=== PATIENT | male | born 1960 | race Caucasian/White ===

== ENCOUNTER 2018-06-30 09:17 | Outpatient (CLI) ==
[2016-01-03 09:59] VITALS: BMI 24.7
== END 2018-06-30 09:18 | disposition home or self-care (01) ==
LOC: LAB 09:17
PROVIDERS: ATTEND Nurse Practitioner Family
DX: Z00.00 Encounter for general adult medical examination without abnormal findings (principal)
CPT/HCPCS: 36415; 80053; 80061; 85025

== ENCOUNTER 2022-07-03 10:12 | Observation (INO) ==
[2022-07-03] MEDS ORDERED: ASPIRIN CHEWABLE PO STA (10:25)
[2022-07-03] MEDS ORDERED: SODIUM CHLORIDE 1,000 ML IV STA (10:25)
[2022-07-03] MEDS ORDERED: NITROSTAT SL PRN (10:25)
--- NOTE | 2022-07-03 10:25 | ED.PDOC ---
General ED Provider: Dr. DWAIN PORTILLO MD Chief Complaint: Chest Pain Stated Complaint: PATIENT WITH A HISTORY OF PREVIOUS MYOCARDIAL INFARCTION, INSERTION CORONARY STENT, COMPLAINS OF SUBSTERNAL CHEST PRESSURE X 2 DAYS. PAIN SCALE 8/10, ASSOCIATED WITH DYSPNEA, RADIATION OF PAIN TO LEFT SHOULDER. PATIENT TOOK 1 BABY ASPIRIN TODAY. Time Seen by Provider: 07/03/22 10:19 Mode of Arrival: Walk-In Information Source: Patient Exam Limitations: Clinical condition Primary Care Provider: EDUARDO MALIN Nursing and Triage Documentation Reviewed and Agree: Yes Does patient meet sepsis criteria?: No System Inflammatory Response Syndrome: Not Applicable Sepsis Protocol: For patient's 13 years and over: Temp is 96.8 and below OR 101 and greater Pulse >90 BPM Resp >20/minute Acutely Altered Mental Status Are patient's symptoms suggestive of a new infection, such as: -Pneumonia -Skin, Soft Tissue -Endocarditis -UTI -Bone, Joint Infection -Implantable Device -Acute Abdominal Infection -Wound Infection -Meningitis -Blood Stream Catheter Infection -Unknown Cardiovascular Complaint Exam Chest Pain Complaint/Exam Onset: Sudden Duration: INTERMITTENT FOR 2 DAYS Symptoms Are: Still present Timing: Intermittent Length of Chest Pain Episodes: PAIN SCALE 8/10, OCCASIONAL DYSPNEA, RADIATES TO LEFT SHOULDER Initial Severity: Moderate Current Severity: Moderate Location: Reports Diffuse Pain Radiates: Reports Left shoulder Character: Reports Pressure Aggravating: Reports None Alleviating: Reports None Associated Signs and Symptoms: Reports Short of air Related History: Reports Similar episode Related Surgical History: Reports PTCA/Stent (CORONARY STENT X 1) History of Healthcare-Acquired Pneumonia: Reports No AMI/ACS Risk Factors: Reports Myocardial Infarction; Denies Sedentary, Diabetes or Obesity TAD Risk Factors: Reports Hypertension Pulmonary Embolism Risk Factors: Denies None Prior Care for this Complaint: Yes Recent Stress Test: No Recent Echo/LV Function: Yes Subcutaneous Emphysema Present: Yes Reproducible Chest Wall Pain: Yes Bilateral Pulses Present: Yes Unequal Pulses Noted: No Review of Systems Review Of Systems Constitutional: Reports No symptoms and Chills Eyes: Reports No symptoms; Denies Blindness Ears, Nose, Mouth, Throat: Reports No symptoms; Denies Ear pain Respiratory: Reports No symptoms Cardiac: Reports Chest pain; Denies Irregular heart rate, Lightheadedness, P alpitations or Syncope GI: Reports No symptoms; Denies Abdomen distended, Abdominal pain or Rectal bleeding : Reports No symptoms; Denies Burning, Dysuria or Discharge Musculoskeletal: Reports No symptoms; Denies Back pain, Gout, Joint pain or Joint swelling Skin: Reports No symptoms; Denies Bruising, Change in color or Change in hair/nails Neurological: Reports No symptoms; Denies Anxiety, Depressed, Emotional problems or Tonic-Clonic seizures Endocrine: Reports No symptoms; Denies Excessive sweating Hematologic/Lymphatic: Reports No symptoms; Denies Anemia All Other Systems: Reviewed and Negative [facility] Medical History (Updated 07/03/22 @ 13:38 by DWAIN PORTILLO MD) Myocardial infarction I21.9 - Acute myocardial infarction, unspecified (ICD-10) Right shoulder pain M25.511 - Pain in right shoulder (ICD-10) Family History FATHER Diabetes, Onset Age: 60 SISTER Cardiac disease, Onset Age: 62 Paternal Grandfather Sudden , Onset Age: 65 Mother Dementia, Onset Age: 70 Social History Smoking and tobacco status: Never smoker Alcohol intake: current Alcohol intake frequency: a few times a month Substance use type: does not use Donna/nondenominational: NONE Adopted: No Caregiver/support person: No Foster care: No Household members: children Housing: house Lives independently: Yes Number of children: 2 Number of grandchildren: 3 Highest education level completed: high school graduate Financial difficulty paying for basics: somewhat hard service: Yes status: [employer]: [employer] Current occupational status: employed Current occupation: internet security specialist Current occupational exposures/hazards: No Pets and animals: Yes Leisure activites: sports, fishing and reading History of recent travel: No Sexually active: Yes Do you think of yourself as: straight/heterosexual Current gender identity: male Seatbelt use: always Helmet use: No Drives intoxicated or rides with intoxicated armor reconnaissance vehicle driver: No Current diet type/program: regular Well-balanced diet: daily Caffeine: Yes Eating out: 1-3 times/week Reads food labels: seldom or never During the past year weight has: remained stable Water heater temperature set < 120 degrees: Yes Working smoke detector in home: Yes Fire extinguisher in home: Yes Carbon monoxide detector in home: Yes Firearms in home: No What type of physical activity do you participate in?: walking, bicycling and weight lifting Physical activity functional status: independent ambulation How many days of moderate to strenuous exercise, like a brisk walk, did you do in the last 7 days: 5 Surgical History (Updated 10/14/19 @ 08:46 by JiaThis PA) History of musculoskeletal system surgery Z98.890 - Other specified postprocedural states (ICD-10) Placement of stent in coronary artery (01/05/16) Physical Exam Physical Exam Appearance: Reports Well-appearing Ill-appearing: Mild Pain Distress: Moderate Eyes: Reports EOMI and Conjunctiva clear; Denies Conjunctiva inflammed ENT: Reports Nose normal and Oropharynx normal; Denies TMs Occluded Neck: Supple Respiratory: Reports Airway patent, Breath sounds clear and Breath sounds equal; Denies Breath sounds diminished Cardiovascular: Reports Pulses normal and No murmur; Denies Irregular rhythm, Tachycardia or Bradycardia GI/: Reports Soft, Nontender, No masses and Bowel sounds normal; Denies No Organomegaly Musculoskeletal: Reports Normal strength and ROM intact Skin: Reports Warm, Dry and Normal color Neurological: Reports Sensation intact, Motor intact and Reflexes intact Psychiatric: Reports Affect appropriate and Mood appropriate Interpretation Radiology Interpretation Radiology Interpretation By: Radiologist Radiology Results: No acute changes Exam Interpreted: Portable CXR Xray Comments: NO ACUTE CARDION PULMONARY PROCESS, FINDING REVIEWED BY MYSELF [facility] Director Time of [facility] Director Interpretation: 10:20 EKG Interpretation Time of EKG #1: 10:15 Rate: Normal Rhythm: Sinus Ectopy: None Mangham: Left ST Segment: Other (NORMAL SINUS RYHTHM RATE 68, OLD INFERIOR NE, NO ECTOPY, NO PROLONGATION OF NM AND QT INTERVALS) Re-Evaluation Re-Evaluation Time of Re-Evaluation: 12:15 Appearance: NAD Lungs: Clear CV: RRR Additional Comments: PATIENT GIVEN ASPIRIN 243MG ORALLY, NITRO 0.4MG SL, WITH COMPLETE RELIEF, APPLICATION NITROPASTE 1" ANTERIOR CHEST WALL Critical Care Note Critical Care Note Total Critical Care Time (mins): 0 Course Course 07/03/22 10:30 07/03/22 10:30 Orders, Labs, Meds: Lab Review 07/03/22 07/03/22 10:30 12:50 WBC 7.50 RBC 5.21 Hgb 15.8 Hct 45.0 MCV 86.4 MCH 30.3 MCHC 35.1 RDW Coeff of Angle 12.5 Plt Count 218 Immature Gran % (Auto) 0.4 Neut % (Auto) 48.8 Lymph % (Auto) 42.4 Atkinson % (Auto) 6.4 Eos % (Auto) 1.3 Baso % (Auto) 0.7 Neut # (Auto) 3.7 Lymph # (Auto) 3.2 Atkinson # (Auto) 0.5 Eos # (Auto) 0.1 Baso # (Auto) 0.1 Immature Gran # (Auto) 0.0 PT 10.1 INR 0.97 APTT 25.5 Sodium 138.1 Potassium 3.96 Chloride 102.5 Carbon Dioxide 30.4 H Anion Gap 9.16 BUN 8.7 L Creatinine 0.98 Estimated GFR (MDRD) 78.00 BUN/Creatinine Ratio 8.87 Glucose 167.6 H Calcium 8.98 Magnesium 2.02 Total Bilirubin 1.01 AST 33.6 ALT 35.9 Alkaline Phosphatase 71.7 Troponin I 0.021 0.029 Total Protein 7.39 Albumin 4.51 Globulin 2.88 Albumin/Globulin Ratio 1.56 D-Dimer 326.70 Orders Category Date Time Status EKG-(ED ONLY) Stat CARDIO 07/03/22 10:25 Completed TELEMETRY MONITORING TELE CARE 07/03/22 10:25 Active IV [ED IV/MEDIPORT/POWERPORT] .ONCE EMERGENCY 07/03/22 10:25 Active CBC W/ AUTO DIFF Stat LAB 07/03/22 10:30 Completed CMP [COMPREHENSIVE METABOLIC PANEL] Stat LAB 07/03/22 10:30 Completed COVID [SARS COV-2 RNA RAPID KASHMIR] Stat LAB 07/03/22 13:00 Received D-DIMER Stat LAB 07/03/22 10:30 Completed MAGNESIUM Stat LAB 07/03/22 10:30 Completed PT WITH INR Stat LAB 07/03/22 10:30 Completed PTT [PARTIAL THROMBOPLASTIN TIME] Stat LAB 07/03/22 10:30 Completed TROPONIN I Stat LAB 07/03/22 10:30 Completed TROPONIN I Stat LAB 07/03/22 12:50 Completed 0.9 % Sodium Chloride [Saline Flush] MEDS 07/03/22 10:25 Active 1 syr IVF PRN PRN Aspirin [Aspirin Chewable] MEDS 07/03/22 10:25 Discontinued 243 mg PO ONCE STA Morphine Sulfate [Morphine 2 mg/ml Syringe] MEDS 07/03/22 11:57 Discontinued 2 mg IVP ONCE STA Nitroglycerin [Nitro-Bid] MEDS 07/03/22 11:57 Discontinued 1 inch TD ONCE STA Nitroglycerin [Nitrostat] MEDS 07/03/22 10:25 Active 0.4 mg SL Q5MIN X 3 DOSES PRN Ondansetron HCl/Pf [Zofran 4 mg/2 ml] MEDS 07/03/22 11:57 Discontinued 4 mg IVP ONCE STA Sodium Chloride 0.9% [Sodium Chloride] 1,000 ml MEDS 07/03/22 10:25 Active IV 30 mls/hr CHEST, 1V AP ONLY Stat RADS 07/03/22 10:25 Completed Medications Generic Name Dose Route Start Last Admin Trade Name Freq PRN Reason Stop Dose Admin Sodium Chloride 1,000 mls @ 30 mls/hr 07/03/22 10:25 07/03/22 10:35 Sodium Chloride IV 07/04/22 19:44 30 mls/hr .[id number] STA Administration Nitroglycerin 0.4 mg 07/03/22 10:25 07/03/22 10:47 Nitroglycerin 0.4 Mg Tab.Subl SL 0.4 mg Q5MIN X 3 DOSES PRN Administration Chest Pain Sodium Chloride 1 syr 07/03/22 10:25 0.9% Sodium Chloride 10 Ml Disp.Syrin IVF PRN PRN To flush IV Discontinued Medications Generic Name Dose Route Start Last Admin Trade Name Frekarli PRN Reason Stop Dose Admin Aspirin 243 mg 07/03/22 10:25 07/03/22 10:34 Aspirin 81 Mg Tab.Chew PO 07/03/22 10:26 243 mg ONCE STA Administration Morphine Sulfate 2 mg 07/03/22 11:57 Morphine Sulfate 2 Mg/Ml Syringe IVP 07/03/22 11:58 ONCE STA Nitroglycerin 1 inch 07/03/22 11:57 Nitroglycerin 1 Gm Oint TD 07/03/22 11:58 ONCE STA Ondansetron HCl 4 mg 07/03/22 11:57 07/03/22 12:16 Ondansetron Hcl/Pf 4 Mg/2 Ml Sdv IVP 07/03/22 11:58 4 mg ONCE STA Administration Vital Signs: Temp Pulse Resp BP Pulse Ox 07/03/22 11:36 66 16 150/81 H 95 07/03/22 10:47 77 14 175/108 H 98 07/03/22 10:18 98.1 F 72 16 193/108 H 99 SHANNON Risk Score Age >/= 65: No >/= 3 CAD Risk Factors: No Known CAD (Stenosis >/= 50%): Yes ASA Use in Past 7 Days: Yes Severe Angina (>/= 2 episodes in 24 hours): Yes EKG ST Changes >/= 0.5mm: No Postive Cardiac Marker: No SHANNON Total Score: 3 SHANNON Risk Score: Risk Score Odds of by 30D 0 0.1 (0.1-0.2) 1 0.3 (0.2-0.3) 2 0.4 (0.3-0.5) 3 0.7 (0.6-0.9) 4 1.2 (1.0-1.5) 5 2.2 (1.9-2.6) 6 3.0 (2.5-3.6) 7 4.8 (3.8-6.1) Discharge Plan Discharge Patient Disposition: PLACED OBSERVATION Discharge Problem: Chest pain Prescriptions: No Action aspirin [Aspirin Low-Strength] 81 MG tablet,chewable 81 mg PO DAILY atorvastatin 10 mg tablet 10 mg PO DAILY lisinopril 10 mg tablet 10 mg PO DAILY Did you review [place] PET TRAINING INSTRUCTOR for ALL controlled substances?: Not Applicable ED Provider: DWAIN PORTILLO Physician Progress Note: MDM HISTORY PROVIDED BY PATIENT PATIENT WITH A HISTORY OF CAD, PREVIOUS NE, CORONARY STENT INSERTION, COMPLAINS OF SUBSTERNAL CHEST PRESSURE X 2 DAYS INTERMITTENTLY, PAIN SCALE 8/10, RADIATES TO LEFT ARM, HAS OCCASIONAL DYSPNEA. DENIES PALPITATION, DIAPHORESIS. SHANNON SCORE -3 CARDIAC MARKERS TROPONIN AT 1030-0.021 AND 1250-0.029 PATIENT TOOK 1 BABY ASPIRIN PRIOR TO ARRIVAL, GIVEN ASA 243MG FOLLOWED BY NTG 0.4MG SL WITH COMPLETE RELIEF, ADMINISTERED ZOFRAN 4MG, MORPHINE 2MG IV AND NITROPASTE 1" ANTERIOR CHEST WALL CONSULT HOSPITALIST QUIANA AT 1335 FOR OBSERVATION WITH TELEMETRY DIAGNOSIS: 1)ACUTE CHEST PAIN 2)ACUTE CORONARY SYNDROME 3)PLEURISY 4)PULMONARY EMBOLISM []
[2022-07-03 10:34] LABS: BASOPHILS # (AUTO) 0.1 K/uL (0-0.2); BASOPHILS % (AUTO) 0.7 % (0.0-3.0); EOSINOPHILS # (AUTO) 0.1 K/ul (0.0-0.7); EOSINOPHILS % (AUTO) 1.3 % (0.0-7.0); HEMOGLOBIN 15.8 g/dl (14.0-18.0); IMMATURE GRANULOCYTE % (AUTO) 0.4 % (0.0-5.0); LYMPHOCYTES # (AUTO) 3.2 K/uL (0.60-3.4); LYMPHOCYTES % (AUTO) 42.4 (10.0-50.0); MEAN CORPUSCULAR HEMOGLOBIN 30.3 pg (27.0-31.0); MEAN CORPUSCULAR HGB CONC 35.1 (31.8-35.4); MEAN CORPUSCULAR VOLUME 86.4 fl (80.0-94.0); MONOCYTES # (AUTO) 0.5 K/uL (0.4-2.0); MONOCYTES % (AUTO) 6.4 (0-10); NEUTROPHILS # (AUTO) 3.7 K/ul (2.0-6.9); NEUTROPHILS % (AUTO) 48.8 % (42.2-75.2); PLATELET COUNT 218 10^3/uL (140-440); RDW COEFFICIENT OF VARIATION 12.5 % (11.6-14.8); RED BLOOD COUNT 5.21 10^6/ul (4.70-6.10)
[2022-07-03 10:42] LABS: ALANINE AMINOTRANSFERASE 35.9 U/L (0-50); ALBUMIN 4.51 g/dL (3.5-5.0); ALKALINE PHOSPHATASE 71.7 U/L (56-119); ASPARTATE AMINO TRANSFERASE 33.6 U/L (17-59); BILIRUBIN,TOTAL 1.01 mg/dL (0.2-1.3); BLOOD UREA NITROGEN 8.7 mg/dL (9-20); CALCIUM 8.98 mg/dL (8.4-10.2); CARBON DIOXIDE 30.4 mmol/L (22-30.0); CHLORIDE 102.5 mmol/L (98-107); CREATININE 0.98 mg/dL (0.60-1.10); GLUCOSE 167.6 mg/dL (74-106); MAGNESIUM 2.02 mg/dL (1.6-2.3); POTASSIUM 3.96 mmol/L (3.5-5.1); SODIUM 138.1 mmol/L (134.5-145); TOTAL PROTEIN 7.39 g/dL (6.3-8.2)
--- NOTE | 2022-07-03 10:43 | DI ---
EXAM: SINGLE VIEW CHEST. HISTORY: Dyspnea COMPARISON: Chest CT 01/03/2016 FINDINGS: The heart is normal in size. Pulmonary vascularity is within normal limits. No focal airsp jose g opacity or pleural effusion is seen. Osseous structures are unremarkable. IMPRESSION: No acute cardiopulmonary findings.
[2022-07-03 10:52] LABS: PARTIAL THROMBOPLASTIN TIME 25.5 SEC (23.9-40.0); PROTHROMBIN TIME 10.1 SEC (9.3-11.0)
[2022-07-03 10:54] LABS: TROPONIN I 0.021 ng/ml (0.0000-0.120)
[2022-07-03] MEDS ORDERED: NITRO-BID TD STA (11:57)
[2022-07-03] MEDS ORDERED: MORPHINE 2 MG/ML SYRINGE IVP STA (11:57)
[2022-07-03] MEDS ORDERED: ZOFRAN 4 MG/2 ML IVP STA (11:57)
[2022-07-03 13:41] LABS: SARS COV-2 RNA RAPID NAAT NEGATIVE (NEGATIVE)
[2022-07-03] MEDS ORDERED: TYLENOL PO PRN (14:59)
[2022-07-03] MEDS ORDERED: ZOFRAN 4 MG/2 ML IVP PRN (14:59)
[2022-07-03] MEDS ORDERED: MYLANTA SUSP PO PRN (15:03)
[2022-07-03 15:26] VITALS: BMI 27.7
[2022-07-03 15:57] LABS: HDL CHOLESTEROL 44.4 mg/dL (35-60); TRIGLYCERIDES 413.8 mg/dL (0-150)
--- NOTE | 2022-07-03 18:16 | PCM ---
Date of Service Date Seen by Provider: 07/03/22 Admit Day/Time Admission Date: 07/03/22 Reason for Admission Chief Complaint: CHEST PAIN Hospital Provider Hospital Provider: PHIL MOJICA, [facility] Primary Care Physician Primary Care Physician: ABISAI HERNANDEZ History of Present Illness History of Present Illness: 61 yo male presented to the ER with chest pain that started 2 days ago. Patient reports that the pain started prior to going into work and he took an aspirin which relieved the pain. Today, the pain started again and took an aspirin again and it did not go away. Describes the pain as a tightness. No aggravating or relieving factors. Has [facility] of [place] with stent placement 7 years ago. Received a nitro in the ER with relief of symptoms then was given nitro paste. Denies any fever, SOB, N/V/D. Case Discussed With Case Discussed With: Patient's case was discussed with the ER Physicians, Dr. Jones. [facility] Medical History (Updated 07/03/22 @ 18:04 by PHIL MOJICA) Hyperlipidemia E78.5 - Hyperlipidemia, unspecified (ICD-10) Hypertension I10 - Essential (primary) hypertension (ICD-10) Myocardial infarction I21.9 - Acute myocardial infarction, unspecified (ICD-10) Pneumonia J18.9 - Pneumonia, unspecified organism (ICD-10) Right shoulder pain M25.511 - Pain in right shoulder (ICD-10) Surgical History History of musculoskeletal system surgery Z98.890 - Other specified postprocedural states (ICD-10) Placement of stent in coronary artery (01/05/16) Family History FATHER Diabetes, Onset Age: 60 SISTER Cardiac disease, Onset Age: 62 Paternal Grandfather Sudden , Onset Age: 65 Mother Dementia, Onset Age: 70 Social History Smoking and tobacco status: Former smoker Quit status: has quit before Second hand smoke exposure: No Alcohol intake: current Alcohol intake frequency: a few times a month Substance use type: does not use Donna/holiness: NONE Adopted: No Caregiver/support person: No Foster care: No Household members: children Housing: house Lives independently: Yes Number of children: 2 Number of grandchildren: 3 Highest education level completed: high school graduate Financial difficulty paying for basics: somewhat hard service: Yes status: reserves branch: [employer] Current occupational status: employed Current occupation: solutions executive security Current occupational exposures/hazards: No Pets and animals: Yes Leisure activites: sports, fishing and reading History of recent travel: No Sexually active: Yes Do you think of yourself as: straight/heterosexual Current gender identity: male Seatbelt use: always Helmet use: No Drives intoxicated or rides with intoxicated limousine driver: No Current diet type/program: regular Well-balanced diet: daily Caffeine: Yes Eating out: 1-3 times/week Reads food labels: seldom or never During the past year weight has: remained stable Water heater temperature set < 120 degrees: Yes Working smoke detector in home: Yes Fire extinguisher in home: Yes Carbon monoxide detector in home: Yes Firearms in home: No What type of physical activity do you participate in?: walking, bicycling and weight lifting Physical activity functional status: independent ambulation How many days of moderate to strenuous exercise, like a brisk walk, did you do in the last 7 days: 5 Allergies Allergies Allergy/AdvReac Type Severity Reaction Status Date / Time No Known Allergies Allergy Verified 01/21/19 09:42 Current Medications Home Medications aspirin 81 mg chewable tablet (Aspirin Low-Strength) 81 mg PO DAILY 06/07/17 [History Confirmed 07/03/22 Last Taken 10/25/18 09:00] atorvastatin 10 mg tablet 10 mg PO DAILY 07/03/22 [History Confirmed 07/03/22 Last Taken Unknown] lisinopril 10 mg tablet 10 mg PO DAILY 07/03/22 [History Confirmed 07/03/22 Last Taken Unknown] Home Acetaminophen (Acetaminophen 325 Mg Tablet) 650 mg PO Q4H PRN PRN Reason: Mild Pain Al Hydroxide/Mg Hydroxide (Mag Hydrox/Al Hydrox/Simeth 30 Ml Cup) 30 ml PO BID PRN PRN Reason: Heartburn Aspirin (Aspirin 81 Mg Tab.Chew) 81 mg PO DAILY REPLACED BY [facility] Atorvastatin Calcium (Atorvastatin Calcium 10 Mg Tablet) 10 mg PO DAILY REPLACED BY [facility] Enoxaparin Sodium (Enoxaparin Sodium 30 Mg/0.3 Ml Syr) 30 mg SUBCUT DAILY LETITIA Sodium Chloride (Sodium Chloride) 1,000 mls @ 30 mls/hr IV .[id number] STA Stop: 07/04/22 19:44 Last Admin: 07/03/22 10:35 Dose: 30 mls/hr Lisinopril (Lisinopril 10 Mg Tablet) 10 mg PO DAILY LETITIA Nitroglycerin (Nitroglycerin 0.4 Mg Tab.Subl) 0.4 mg SL Q5MIN X 3 DOSES PRN PRN Reason: Chest Pain Last Admin: 07/03/22 10:47 Dose: 0.4 mg Ondansetron HCl (Ondansetron Hcl/Pf 4 Mg/2 Ml Sdv) 4 mg IVP Q8H PRN PRN Reason: Nausea / Vomiting Sodium Chloride (0.9% Sodium Chloride 10 Ml Disp.Syrin) 1 syr IVF PRN PRN PRN Reason: To flush IV Discontinued Medications Aspirin (Aspirin 81 Mg Tab.Chew) 243 mg PO ONCE STA Stop: 07/03/22 10:26 Last Admin: 07/03/22 10:34 Dose: 243 mg Morphine Sulfate (Morphine Sulfate 2 Mg/Ml Syringe) 2 mg IVP ONCE STA Stop: 07/03/22 11:58 Last Admin: 07/03/22 14:02 Dose: Not Given Nitroglycerin (Nitroglycerin 1 Gm Oint) 1 inch TD ONCE STA Stop: 07/03/22 11:58 Last Admin: 07/03/22 14:03 Dose: Not Given Ondansetron HCl (Ondansetron Hcl/Pf 4 Mg/2 Ml Sdv) 4 mg IVP ONCE STA Stop: 07/03/22 11:58 Last Admin: 07/03/22 12:16 Dose: 4 mg Review of Systems Constitutional: Reports No symptoms Head: Reports Normocephalic and Atraumatic Eyes: Reports No symptoms Ears: Reports No symptoms Nose: Reports No symptoms Mouth: Reports No symptoms Throat: Reports No symptoms Cardiovascular: Reports Chest pain, High Blood Pressure and Diaphoresis Respiratory: Reports No symptoms Gastrointestinal: Reports No symptoms Genitourinary: Reports No Symptoms Musculoskeletal: Reports No symptoms Endocrine: Reports No symptoms Hematology: Reports No symptoms Immunology: Reports No symptoms Neurological: Reports No symptoms Psychiatric: Reports No symptoms Physical examination Most Recent Vital Signs: Most Recent Vital Signs Temperature 97 F L 07/03/22 14:51 Temperature Source Oral 07/03/22 14:51 Temperature Source Infrared 07/03/22 10:18 Pulse Rate 68 07/03/22 14:51 Respiratory Rate 18 07/03/22 14:51 Blood Pressure 118/72 07/03/22 14:30 Blood Pressure Left Arm 151/90 07/03/22 14:51 Blood Pressure Position Sitting 07/03/22 14:51 O2 Sat by Pulse Oximetry 96 07/03/22 14:51 Oxygen Delivery Method Room Air 07/03/22 14:51 Height 6 ft 07/03/22 14:51 Weight 204 lb 4 oz 07/03/22 14:51 Telemetry Type Remote Telemetry 07/03/22 13:00 Telemetry Monitoring Started 07/03/22 13:00 Irregular Telemetry Rate (Approximate) 60-70 BPM 07/03/22 13:00 EKG [place] Interval 0.20 07/03/22 13:00 EKG QRS Interval 0.08 07/03/22 13:00 Telemetry Strip Reading SR WITH PACS 07/03/22 13:00 Appearance: Positive Well-appearing, Well-nourished, No Apparent Distress and Alert and Oriented x3 Skin: Positive [place], Warm, Good Turgor and Good Color HEENT: Positive Normocephalic, Atraumatic and PERRLA Neck: Positive Supple, Non-Enlarged Thyroid and Midline Trachea Chest/Lungs: Positive Symmetrical With Equal Breath Sounds, Clear to Auscultation Bilaterally and Good Air Movement all 4 Lung [place] Heart: Positive RRR, Pulses Normal, No S3 Auscultated and No S4 Auscultated GI/: Positive Soft, Nontender, Bowel Sounds Normal, No Distention and No Organomegaly Musculoskeletal: Positive Not Examined Extremities: Positive Intact Peripheral Pulses, Stable Joints Without Laxity and Good ROM in All Joints Neurological: Positive Sensation Intact, Motor intact, Reflexes Intact, Alert, Oriented and Muscle Strength 5/5 in Upper and Lower Extremities Bilaterally Psychiatric: Positive Oriented x4, Appropriate Mood, Appropriate Affect, Intact Memory, Good Short-Term Recall, Good Long-Term Recall, Normal Judgement and Normal Insight Labs This Visit Labs This Visit: Labs This Visit 07/03/22 07/03/22 07/03/22 10:30 12:50 13:00 WBC 7.50 RBC 5.21 Hgb 15.8 Hct 45.0 MCV 86.4 MCH 30.3 MCHC 35.1 RDW Coeff of Angle 12.5 Plt Count 218 Immature Gran % (Auto) 0.4 Neut % (Auto) 48.8 Lymph % (Auto) 42.4 [place] % (Auto) 6.4 Eos % (Auto) 1.3 Baso % (Auto) 0.7 Neut # (Auto) 3.7 Lymph # (Auto) 3.2 [place] # (Auto) 0.5 Eos # (Auto) 0.1 Baso # (Auto) 0.1 Immature Gran # (Auto) 0.0 PT 10.1 INR 0.97 APTT 25.5 Sodium 138.1 Potassium 3.96 Chloride 102.5 Carbon Dioxide 30.4 H Anion Gap 9.16 BUN 8.7 L Creatinine 0.98 Estimated GFR (MDRD) 78.00 BUN/Creatinine Ratio 8.87 Glucose 167.6 H Hemoglobin A1c Calcium 8.98 Magnesium 2.02 Total Bilirubin 1.01 AST 33.6 ALT 35.9 Alkaline Phosphatase 71.7 Troponin I 0.021 0.029 Total Protein 7.39 Albumin 4.51 Globulin 2.88 Albumin/Globulin Ratio 1.56 Triglycerides Cholesterol LDL Cholesterol, Calc VLDL Cholesterol HDL Cholesterol Cholesterol/HDL Ratio D-Dimer 326.70 SARS CoV-2 RNA Rapid KASHMIR Negative 07/03/22 07/03/22 15:20 15:40 WBC RBC Hgb Hct MCV MCH MCHC RDW Coeff of Angle Plt Count Immature Gran % (Auto) Neut % (Auto) Lymph % (Auto) [place] % (Auto) Eos % (Auto) Baso % (Auto) Neut # (Auto) Lymph # (Auto) [place] # (Auto) Eos # (Auto) Baso # (Auto) Immature Gran # (Auto) PT INR APTT Sodium Potassium Chloride Carbon Dioxide Anion Gap BUN Creatinine Estimated GFR (MDRD) BUN/Creatinine Ratio Glucose Hemoglobin A1c 6.96 H Calcium Magnesium Total Bilirubin AST ALT Alkaline Phosphatase Troponin I 0.074 Total Protein Albumin Globulin Albumin/Globulin Ratio Triglycerides 413.8 H Cholesterol 213.0 H LDL Cholesterol, Calc VLDL Cholesterol HDL Cholesterol 44.4 Cholesterol/HDL Ratio 4.8 D-Dimer SARS CoV-2 RNA Rapid KASHMIR Imaging Imagining: Procedure(s): CHEST, 1V AP ONLY Report Number(s): [id number] Accession Number(s): [id number] cc: ABISAI HERNANDEZ ; DWAIN JONES MD EXAM: SINGLE VIEW CHEST. HISTORY: Dyspnea COMPARISON: Chest CT 01/03/2016 FINDINGS: The heart is normal in size. Pulmonary vascularity is within normal limits. No focal airspace opacity or pleural effusion is seen. Osseous structures are unremarkable. IMPRESSION: No acute cardiopulmonary findings. EKG Interpretation EKG Interpretation: No acute changes per Dr. Jones Review Statement Review Statement: I have independently reviewed and interpreted the labs/EKGs/imaging that were ordered by the ER provider. I have reviewed all outside records that are available currently in our EMR including imaging/notes/labs from previous visits. Plan Plan: 1. Chest Pain r/o ACS - serial troponins and EKGs, telemetry, lipid panel and hemoglobin A1C ordered, VSQ4H, cardiac diet, aspirin 81 mg daily, checking echo and stress test due to history/risk factors 2. Hypertension - chronic, improved since ER, continue home medications, will adjust if necessary 3. Hyperlipidemia - chronic, just started on statin recently, continue home medication 4. Elevated A1C - patient had recently seen PCP and is attempted to control with diet first DVT Prophylaxis: Up ad tray, ambulate in halls TID Time Spent: Greater than 80 minutes spent with patient, 50% of the time spent with this patient was devoted to counseling and coordination of care. [facility] Plannin minutes spent discussing advance care planning. Disposition: Admit to: Med/Surg Observation Discussed Plan of Care with Dr. Issa Medications Medication Orders: Medications Ordered Category Date Time Status 0.9 % Sodium Chloride [Saline Flush] MEDS 07/03/22 10:25 Active 1 syr IVF PRN PRN Acetaminophen [Tylenol] MEDS 07/03/22 14:59 Active 650 mg PO Q4H PRN Aspirin [Aspirin Chewable] MEDS 07/04/22 09:00 Active 81 mg PO DAILY Atorvastatin Calcium [Lipitor] MEDS 07/04/22 09:00 Active 10 mg PO DAILY Enoxaparin Sodium [Lovenox] MEDS 07/04/22 09:00 Active 30 mg SUBCUT DAILY Lisinopril [Zestril] MEDS 07/04/22 09:00 Active 10 mg PO DAILY Mag Hydrox/Al Hydrox/Simeth [Mylanta Susp] MEDS 07/03/22 15:03 Active 30 ml PO BID PRN Nitroglycerin [Nitrostat] MEDS 07/03/22 10:25 Active 0.4 mg SL Q5MIN X 3 DOSES PRN Ondansetron HCl/Pf [Zofran 4 mg/2 ml] MEDS 07/03/22 14:59 Active 4 mg IVP Q8H PRN Sodium Chloride 0.9% [Sodium Chloride] 1,000 ml MEDS 07/03/22 10:25 Active IV 30 mls/hr
[2022-07-03] MEDS ORDERED: LOVENOX SUBCUT ONE (20:21)
[2022-07-04 05:06] LABS: BASOPHILS % (AUTO) 0.2 % (0.0-3.0); EOSINOPHILS # (AUTO) 0.1 K/ul (0.0-0.7); EOSINOPHILS % (AUTO) 0.9 % (0.0-7.0); HEMATOCRIT 43.6 % (42.0-52.0); HEMOGLOBIN 15.3 g/dl (14.0-18.0); IMMATURE GRANULOCYTE % (AUTO) 0.3 % (0.0-5.0); LYMPHOCYTES # (AUTO) 2.9 K/uL (0.60-3.4); LYMPHOCYTES % (AUTO) 34.2 (10.0-50.0); MEAN CORPUSCULAR HEMOGLOBIN 30.8 pg (27.0-31.0); MEAN CORPUSCULAR HGB CONC 35.1 (31.8-35.4); MEAN CORPUSCULAR VOLUME 87.7 fl (80.0-94.0); MONOCYTES # (AUTO) 0.5 K/uL (0.4-2.0); MONOCYTES % (AUTO) 5.5 (0-10); NEUTROPHILS # (AUTO) 5.1 K/ul (2.0-6.9); NEUTROPHILS % (AUTO) 58.9 % (42.2-75.2); PLATELET COUNT 215 10^3/uL (140-440); RDW COEFFICIENT OF VARIATION 12.6 % (11.6-14.8); RED BLOOD COUNT 4.97 10^6/ul (4.70-6.10); WHITE BLOOD COUNT 8.59 K/ul (4.2-10.2)
[2022-07-04 05:20] LABS: ALANINE AMINOTRANSFERASE 35.5 U/L (0-50); ALBUMIN 4.24 g/dL (3.5-5.0); ALKALINE PHOSPHATASE 59.5 U/L (56-119); ASPARTATE AMINO TRANSFERASE 43.5 U/L (17-59); BILIRUBIN,TOTAL 0.91 mg/dL (0.2-1.3); BLOOD UREA NITROGEN 11.2 mg/dL (9-20); CALCIUM 8.44 mg/dL (8.4-10.2); CARBON DIOXIDE 29.6 mmol/L (22-30.0); CHLORIDE 103.2 mmol/L (98-107); CREATININE 0.91 mg/dL (0.60-1.10); GLUCOSE 125.9 mg/dL (74-106); POTASSIUM 4.06 mmol/L (3.5-5.1); SODIUM 137.8 mmol/L (134.5-145); TOTAL PROTEIN 6.98 g/dL (6.3-8.2)
[2022-07-04 05:54] LABS: TROPONIN I 2.78 ng/ml (0.0000-0.120)
[2022-07-04 07:37] LABS: PROTHROMBIN TIME 10.6 SEC (9.3-11.0)
[2022-07-04] MEDS ORDERED: HEPARIN 25,000 UNIT/250 ML NACL 25,000 UNIT/250 ML BAG IV SCH (08:30)
[2022-07-04] MEDS ORDERED: ASPIRIN CHEWABLE PO SCH (09:00)
[2022-07-04] MEDS ORDERED: ZESTRIL PO SCH (09:00)
[2022-07-04] MEDS ORDERED: LOVENOX SUBCUT SCH (09:00)
[2022-07-04] MEDS ORDERED: LIPITOR PO SCH (09:00)
--- NOTE | 2022-07-04 12:18 | ECHO2D ---
Date of Exam: 07/04/2022 Ordering Physician: STEPHANIE HERNANDEZ Room #: [id number] Reason for Echo: CHEST PAIN, STENT 2016 M-Mode Normal Adult Results LV Dimensions Normal Adult Results AoV Opening excursions >1.6 >1.6 LVEDD-base- 3.5-5.8 4.8 Ao root dimensions 2.0-3.7 3.9 LVESD-base- 3.1-4.6 L. Atrium dimensions 1.9-3.8 3.9 Post. Wall thickness 0.8-1.1 1.3 IV septum (thickness) 0.7-1.2 1.3 Post. Wall excursion 0.72-1.3 0.4 Septal motion NORMAL Systolic motion R. Ventricular cavity 1.5-2.0 NORMAL LVEF 60% 50% Paradoxical septal wall motion NORMAL 2-D : 2-D M Mode Echocardiogram was performed using apical four chamber and left parasternal long and short axis views. Mitral, tricuspid and aortic valves appear to be normal. Contractility of the left ventricle seems to be normal, so is the cavity size. Left atrial cavity size and aortic root appear to be normal. There is no pericardial effusion. There is no thrombus noted in the left ventricle or left atrial cavity. HYPOKINETIC INFERIOR POST WALL M-MODE: MV: NORMAL AV: NORMAL TV: NORMAL PV: CHAMBER SIZE: NORMAL WALL MOTION: HYPOKINETIC INFERIOR POST WALL PERICARDIUM: NORMAL INTERPRETATION: 1. LEFT VENTRICLE HYPERTROPHY 2. HYPOKINETIC INFERIOR POST WALL EJECTION FRACTION 50% 3. NORMAL VALVES 4. NORMAL LEFT VENTRICLE SIZE MTDD
--- NOTE | 2022-07-04 12:43 | PCM.PROG ---
Provider Provider: HOLLIS STEINER [facility] Chief Complaint Chief Complaint: CHEST PAIN Vital Signs Vital Signs: Vital Signs: Last 24 Hours 07/03/22 14:30 07/03/22 13:00 07/03/22 14:51 Temperature 97 F L Temperature Source Oral Pulse Rate 67 63 Pulse Rate [Apical] Respiratory Rate 17 16 Blood Pressure 118/72 Blood Pressure Mean Blood Pressure Left Arm 151/90 Blood Pressure Location Blood Pressure Position Sitting O2 Sat by Pulse Oximetry 98 96 Oxygen Delivery Method Room Air Height 6 ft Weight 204 lb 4 oz Telemetry Type Remote Telemetry Telemetry Monitoring Started Irregular Telemetry Rate (Approximate) 60-70 BPM Telemetry Heart Rate EKG [place] Interval 0.20 EKG QRS Interval 0.08 Telemetry Strip Reading SR WITH PACS 07/03/22 14:51 07/03/22 18:00 07/03/22 19:00 Temperature 97 F L Temperature Source Temporal Artery Scan Pulse Rate 73 Pulse Rate [Apical] 68 Respiratory Rate 18 16 Blood Pressure 112/66 Blood Pressure Mean 81 Blood Pressure Left Arm Blood Pressure Location Left Arm Blood Pressure Position Supine O2 Sat by Pulse Oximetry 95 Oxygen Delivery Method Room Air Room Air Height Weight Telemetry Type Remote Telemetry Telemetry Monitoring Continues Irregular Telemetry Rate (Approximate) 70-80 BPM Telemetry Heart Rate EKG NC Interval 0.19 EKG QRS Interval 0.06 Telemetry Strip Reading SR with PACS 07/03/22 20:57 07/03/22 20:00 07/04/22 01:00 Temperature 96.9 F L Temperature Source Temporal Artery Scan Pulse Rate 64 Pulse Rate [Apical] 68 Respiratory Rate 18 20 Blood Pressure 134/73 Blood Pressure Mean 93 Blood Pressure Left Arm Blood Pressure Location Right Arm Blood Pressure Position Supine O2 Sat by Pulse Oximetry 95 Oxygen Delivery Method Room Air Room Air Height Weight Telemetry Type Remote Telemetry Telemetry Monitoring Continues Irregular Telemetry Rate (Approximate) Telemetry Heart Rate 68 EKG [place] Interval 0.17 EKG QRS Interval 0.07 Telemetry Strip Reading SR 07/04/22 05:09 07/04/22 10:00 07/04/22 07:00 Temperature 96.9 F L 96.6 F L Temperature Source Temporal Artery Scan Temporal Artery Scan Pulse Rate 69 90 Pulse Rate [Apical] Respiratory Rate 20 18 Blood Pressure 134/80 153/92 H Blood Pressure Mean 98 112 Blood Pressure Left Arm Blood Pressure Location Right Arm Right Arm Blood Pressure Position Supine Sitting O2 Sat by Pulse Oximetry 93 L 97 Oxygen Delivery Method Room Air Room Air Height Weight Telemetry Type Remote Telemetry Telemetry Monitoring Continues Irregular Telemetry Rate (Approximate) Telemetry Heart Rate 71 EKG [place] Interval 0.15 EKG QRS Interval 0.03 L Telemetry Strip Reading SR 07/04/22 08:00 Temperature Temperature Source Pulse Rate Pulse Rate [Apical] Respiratory Rate Blood Pressure Blood Pressure Mean Blood Pressure Left Arm Blood Pressure Location Blood Pressure Position O2 Sat by Pulse Oximetry Oxygen Delivery Method Room Air Height Weight Telemetry Type Telemetry Monitoring Irregular Telemetry Rate (Approximate) Telemetry Heart Rate EKG NC Interval EKG QRS Interval Telemetry Strip Reading Lab Results Lab Results: Lab Results: Last 24 Hours 07/04/22 07/03/22 07/03/22 04:47 18:40 15:40 WBC 8.59 RBC 4.97 Hgb 15.3 Hct 43.6 MCV 87.7 MCH 30.8 MCHC 35.1 RDW Coeff of Angle 12.6 Plt Count 215 Immature Gran % (Auto) 0.3 Neut % (Auto) 58.9 Lymph % (Auto) 34.2 [place] % (Auto) 5.5 Eos % (Auto) 0.9 Baso % (Auto) 0.2 Neut # (Auto) 5.1 Lymph # (Auto) 2.9 [place] # (Auto) 0.5 Eos # (Auto) 0.1 Baso # (Auto) 0.0 Immature Gran # (Auto) 0.0 PT 10.6 INR 1.02 APTT 29.1 Sodium 137.8 Potassium 4.06 Chloride 103.2 Carbon Dioxide 29.6 Anion Gap 9.06 BUN 11.2 Creatinine 0.91 Estimated GFR (MDRD) 85.00 BUN/Creatinine Ratio 12.30 Glucose 125.9 H Hemoglobin A1c Calcium 8.44 Total Bilirubin 0.91 AST 43.5 ALT 35.5 Alkaline Phosphatase 59.5 Troponin I 2.780 H* 0.184 H 0.074 Total Protein 6.98 Albumin 4.24 Globulin 2.74 Albumin/Globulin Ratio 1.54 Triglycerides Cholesterol LDL Cholesterol, Calc VLDL Cholesterol HDL Cholesterol Cholesterol/HDL Ratio SARS CoV-2 RNA Rapid KASHMIR 07/03/22 07/03/22 07/03/22 15:20 13:00 12:50 WBC RBC Hgb Hct MCV MCH MCHC RDW Coeff of Angle Plt Count Immature Gran % (Auto) Neut % (Auto) Lymph % (Auto) [place] % (Auto) Eos % (Auto) Baso % (Auto) Neut # (Auto) Lymph # (Auto) [place] # (Auto) Eos # (Auto) Baso # (Auto) Immature Gran # (Auto) PT INR APTT Sodium Potassium Chloride Carbon Dioxide Anion Gap BUN Creatinine Estimated GFR (MDRD) BUN/Creatinine Ratio Glucose Hemoglobin A1c 6.96 H Calcium Total Bilirubin AST ALT Alkaline Phosphatase Troponin I 0.029 Total Protein Albumin Globulin Albumin/Globulin Ratio Triglycerides 413.8 H Cholesterol 213.0 H LDL Cholesterol, Calc VLDL Cholesterol HDL Cholesterol 44.4 Cholesterol/HDL Ratio 4.8 SARS CoV-2 RNA Rapid KASHMIR Negative Additional Comments Additional Comments: I have independently reviewed and interpreted the labs/EKGs/imaging ordered during this hospital stay. I have reviewed outside records that are available in our EMR that pertain to medical stay including imaging/notes/labs from previous visits. Active Medications Active Medications: Medications Generic Name Dose Route Start Last Admin Trade Name Lukeq PRN Reason Stop Dose Admin Acetaminophen 650 mg 07/03/22 14:59 07/04/22 10:16 Acetaminophen 325 Mg Tablet PO 650 mg Q4H PRN Administration Mild Pain Al Hydroxide/Mg Hydroxide 30 ml 07/03/22 15:03 Mag Hydrox/Al Hydrox/Simeth 30 Ml Cup PO BID PRN Heartburn Aspirin 81 mg 07/04/22 09:00 07/04/22 10:17 Aspirin 81 Mg Tab.Chew PO 81 mg DAILY LETITIA Administration Sodium Chloride 1,000 mls @ 30 mls/hr 07/03/22 10:25 07/03/22 10:35 Sodium Chloride IV 07/04/22 19:44 30 mls/hr .[id number] STA Administration Heparin Sodium/Sodium Chloride 25,000 unit in 250 mls @ 11.118 mls/hr 07/04/22 08:30 07/04/22 10:18 Heparin 25,000 Unit/250 Ml Nacl IV 12 unit/kg/hr TITRATION LETITIA 11.1 mls/hr Administration Protocol 12 UNIT/KG/HR Nitroglycerin 0.4 mg 07/03/22 10:25 07/03/22 10:47 Nitroglycerin 0.4 Mg Tab.Subl SL 0.4 mg Q5MIN X 3 DOSES PRN Administration Chest Pain Ondansetron HCl 4 mg 07/03/22 14:59 Ondansetron Hcl/Pf 4 Mg/2 Ml Sdv IVP Q8H PRN Nausea / Vomiting Sodium Chloride 1 syr 07/03/22 10:25 0.9% Sodium Chloride 10 Ml Disp.Syrin IVF PRN PRN To flush IV Review Statement Review Statement: I have personally discussed and reviewed the patient's visit/currently labs/imaging/decision making with Dr. Issa, my supervising attending. Greater that 50 minutes spent with patient, 50% of the time spent with this patient was devoted to counseling and coordination of care.
[2022-07-04 14:13] VITALS: BP 119/74; RESP 14; TEMP 96.8
--- NOTE | 2022-07-04 14:23 | DCSUM ---
Admission Date Admission Date: 07/03/22 Discharge Date Discharge Date: 07/04/22 Admission Diagnosis Admission Diagnosis: CHEST PAIN Discharge Diagnosis Discharge Diagnosis: 1. NSTEMI 2. HYPERLIPIDEMIA 3. HYPERTENSION 4. DMT2, NEW ONSET A1C 6.9 5. HISTORY OF [place] S/P STENT 2016 Hospital Provider Hospital Provider: HOLLIS STE[facility] Primary Care Physician Primary Care Physician: ABISAI HERNANDEZ Summary of History and Physical Summary of History and Physical: 61 yo male presented to the ER with chest pain that started Monday morning. Patient reports that the pain started prior to going into work and he took an aspirin which relieved the pain. Monday morning, the pain started again waking him from sleep and took an aspirin again and it did not go away. Describes the pain as a tightness. Has associated pain down left arm. No aggravating or relieving factors. Has pmh of [place] with stent placement in 2015 at [facility]. Received a nitro in the ER with relief of symptoms then was given nitro paste. Denies any fever, SOB, N/V/D. Trop negative. D dimer normal. CXR negative. Patient also given lovenox treatment dose. Hospital Course Subjective: Patient has been chest pain free today 07/04. However his troponin has increased to 2.78. EKG unchanged compared to 2016. Discussed risks vs benefits of heparin drip, no prior history of bleeding. He is agreeable to heparin drip. Cholesterol elevated, a1c elevated as well. Diabetes is a new diagnosis for him, states he was told previously he was borderline and trying diet changes. He is a nonsmoker. Echo performed today showed hypokinesis of inferior posterior wall, normal LVEF. Full report below. Concern with history of [place] and increasing troponin, would benefit from cath. Unable to perform at this facility. Contacted surrounding facilities including [facility], [facility], [facility] with no beds. Dr. Garcia, hospitalist, from [facility] accepted patient. Patient transferred in stable condition. Appearance: Pleasant, No Apparent Distress, Alert, Well-appearing and Well- nourished HEENT: MMM CVS: No Murmur, No Rubs and No Gallop Abdomen: Soft, Non-Tender and No Distention Respiratory: No Dyspnea Extremities: No Edema Vital Signs: Most Recent Vital Signs Temperature 96.8 F L 07/04/22 14:00 Temperature Source Temporal Artery Scan 07/04/22 14:00 Temperature Source Infrared 07/03/22 10:18 Pulse Rate 68 07/04/22 14:00 Respiratory Rate 14 07/04/22 14:00 Blood Pressure 119/74 07/04/22 14:00 Blood Pressure Mean 89 07/04/22 14:00 Blood Pressure Left Arm 151/90 07/03/22 14:51 Blood Pressure Location Right Arm 07/04/22 14:00 Blood Pressure Position Supine 07/04/22 14:00 O2 Sat by Pulse Oximetry 93 L 07/04/22 14:00 Oxygen Delivery Method Room Air 07/04/22 14:00 Height 6 ft 07/03/22 14:51 Weight 204 lb 4 oz 07/03/22 14:51 Telemetry Type Remote Telemetry 07/04/22 07:00 Telemetry Monitoring Continues 07/04/22 07:00 Irregular Telemetry Rate (Approximate) 70-80 BPM 07/03/22 19:00 Telemetry Heart Rate 71 07/04/22 07:00 EKG WV Interval 0.15 07/04/22 07:00 EKG QRS Interval 0.03 L 07/04/22 07:00 Telemetry Strip Reading SR 07/04/22 07:00 Imaging: EXAM: SINGLE VIEW CHEST. HISTORY: Dyspnea COMPARISON: Chest CT 01/03/2016 FINDINGS: The heart is normal in size. Pulmonary vascularity is within normal limits. No focal airspace opacity or pleural effusion is seen. Osseous structures are unremarkable. IMPRESSION: No acute cardiopulmonary findings. Reason for Echo:CHEST PAIN, STENT 2015 M-Mode Normal Adult Results LV Dimensions Normal Adult Results AoV Opening excursions >1.6 >1.6 LVEDD-base- 3.5-5.8 4.8 Ao root dimensions 2.0-3.7 3.9 LVESD-base- 3.1-4.6 L. Atrium dimensions 1.9-3.8 3.9 Post. Wall thickness 0.8-1.1 1.3 IV septum (thickness) 0.7-1.2 1.3 Post. Wall excursion 0.72-1.3 0.4 Septal motion NORMAL Systolic motion R. Ventricular cavity 1.5-2.0 NORMAL LVEF 60%A 50% Paradoxical septal wall motion NORMAL 2-D :2-D M Mode Echocardiogram was performed using apical four chamber and left parasternal long and short axis views. Mitral, tricuspid and aortic valves appear to be normal. Contractility of the left ventricle seems to be normal, so is the cavity size. Left atrial cavity size and aortic root appear to be normal. There is no pericardial effusion. There is no thrombus noted in the left ventricle or left atrial cavity. HYPOKINETIC INFERIOR POST WALL M-MODE: MV:NORMAL AV: NORMAL TV: NORMAL PV: CHAMBER SIZE: NORMAL WALL MOTION:HYPOKINETIC INFERIOR POST WALL PERICARDIUM: NORMAL INTERPRETATION: 1.LEFT VENTRICLE HYPERTROPHY 2. HYPOKINETIC INFERIOR POST WALL EJECTION FRACTION 50% 3. NORMAL VALVES 4. NORMAL LEFT VENTRICLE SIZE Lab Results Last 24 Hours: 07/04/22 07/03/22 07/03/22 04:47 18:40 15:40 WBC 8.59 RBC 4.97 Hgb 15.3 Hct 43.6 MCV 87.7 MCH 30.8 MCHC 35.1 RDW Coeff of Angle 12.6 Plt Count 215 Immature Gran % (Auto) 0.3 Neut % (Auto) 58.9 Lymph % (Auto) 34.2 [place] % (Auto) 5.5 Eos % (Auto) 0.9 Baso % (Auto) 0.2 Neut # (Auto) 5.1 Lymph # (Auto) 2.9 [place] # (Auto) 0.5 Eos # (Auto) 0.1 Baso # (Auto) 0.0 Immature Gran # (Auto) 0.0 PT 10.6 INR 1.02 APTT 29.1 Sodium 137.8 Potassium 4.06 Chloride 103.2 Carbon Dioxide 29.6 Anion Gap 9.06 BUN 11.2 Creatinine 0.91 Estimated GFR (MDRD) 85.00 BUN/Creatinine Ratio 12.30 Glucose 125.9 H Hemoglobin A1c Calcium 8.44 Total Bilirubin 0.91 AST 43.5 ALT 35.5 Alkaline Phosphatase 59.5 Troponin I 2.780 H* 0.184 H 0.074 Total Protein 6.98 Albumin 4.24 Globulin 2.74 Albumin/Globulin Ratio 1.54 Triglycerides Cholesterol LDL Cholesterol, Calc VLDL Cholesterol HDL Cholesterol Cholesterol/HDL Ratio 07/03/22 15:20 WBC RBC Hgb Hct MCV MCH MCHC RDW Coeff of Angle Plt Count Immature Gran % (Auto) Neut % (Auto) Lymph % (Auto) [place] % (Auto) Eos % (Auto) Baso % (Auto) Neut # (Auto) Lymph # (Auto) [place] # (Auto) Eos # (Auto) Baso # (Auto) Immature Gran # (Auto) PT INR APTT Sodium Potassium Chloride Carbon Dioxide Anion Gap BUN Creatinine Estimated GFR (MDRD) BUN/Creatinine Ratio Glucose Hemoglobin A1c 6.96 H Calcium Total Bilirubin AST ALT Alkaline Phosphatase Troponin I Total Protein Albumin Globulin Albumin/Globulin Ratio Triglycerides 413.8 H Cholesterol 213.0 H LDL Cholesterol, Calc VLDL Cholesterol HDL Cholesterol 44.4 Cholesterol/HDL Ratio 4.8 Discharge Instructions Discharge Planning: TRANSFER TO [facility] Dx: NSTEMI DIET: NPO CONTINUE HEPARIN DRIP Discharge Planning > 70 minutes Medications Given This Visit: Medications Generic Name Dose Route Start Last Admin Trade Name Freq PRN Reason Stop Dose Admin Acetaminophen 650 mg 07/03/22 14:59 07/04/22 10:16 Acetaminophen 325 Mg Tablet PO 650 mg Q4H PRN Administration Mild Pain Al Hydroxide/Mg Hydroxide 30 ml 07/03/22 15:03 Mag Hydrox/Al Hydrox/Simeth 30 Ml Cup PO BID PRN Heartburn Aspirin 81 mg 07/04/22 09:00 07/04/22 10:17 Aspirin 81 Mg Tab.Chew PO 81 mg DAILY LETITIA Administration Sodium Chloride 1,000 mls @ 30 mls/hr 07/03/22 10:25 07/03/22 10:35 Sodium Chloride IV 07/04/22 19:44 30 mls/hr .[id number] STA Administration Heparin Sodium/Sodium Chloride 25,000 unit in 250 mls @ 11.118 mls/hr 07/04/22 08:30 07/04/22 10:18 Heparin 25,000 Unit/250 Ml Nacl IV 12 unit/kg/hr TITRATION LETITIA 11.1 mls/hr Administration Protocol 12 UNIT/KG/HR Nitroglycerin 0.4 mg 07/03/22 10:25 07/03/22 10:47 Nitroglycerin 0.4 Mg Tab.Subl SL 0.4 mg Q5MIN X 3 DOSES PRN Administration Chest Pain Ondansetron HCl 4 mg 07/03/22 14:59 Ondansetron Hcl/Pf 4 Mg/2 Ml Sdv IVP Q8H PRN Nausea / Vomiting Sodium Chloride 1 syr 07/03/22 10:25 0.9% Sodium Chloride 10 Ml Disp.Syrin IVF PRN PRN To flush IV Medications Given This Visit: Medications at Discharge (Home Meds & RX) aspirin 81 mg chewable tablet (Aspirin Low-Strength) 81 mg PO DAILY 06/07/17 atorvastatin 10 mg tablet 10 mg PO DAILY 07/03/22 lisinopril 10 mg tablet 10 mg PO DAILY 07/03/22 Discharge Plan Discharge Discharge Orders: Discharge Patient (ONCE); Ordered 07/04/22 Ordered By: HOLLIS STEINER Activity Restrictions/Additional Instructions: TRANSFER TO [facility] DX: NSTEMI ACCEPTING HOSPITALIST: DR. GARCIA CONTINUE HEPARIN DRIP ROOM NUMBER [id number] CALL REPORT TO [phone] Patient Disposition: TSF SHORT-TRM HOSP Did you review [place] AWNING ERECTOR for ALL controlled substances?: Not Applicable Discussed opioids are addictive and Narcan is available by prescription or from pharmacy.: No Condition: Critical Critical Care Note Critical Care Note Total Critical Care Time (mins): 40 Comments: Dx: NSTEMI Patient was admitted with chest pain. Initially had normal troponins but increased to 2.7. Serial EKGs performed. Patient was placed on a heparin drip IV. PTT monitored closely. Patient on telemetry. Discussed plan with patient, family, nursing staff, and consultants. Required transfer to facility with higher level of care. Systems at risk include cardio and pulm. Critical care time included reviewing and interpreting labs, imaging, ordering drip, speaking with attending Dr. David Issa and the hospitalist at transfer facility.
== END 2022-07-04 15:00 | disposition short-term general hospital (02) ==
LOC: MEDSURG A 10:12 → ED 10:12 → MEDSURG A 15:32
PROVIDERS: ADMIT Hospitalist; ATTEND Physician Assistant
DX: Z51.81 Encounter for therapeutic drug level monitoring; Z87.01 Personal history of pneumonia (recurrent); Z20.822 Contact with and (suspected) exposure to COVID-19; I25.2 Old myocardial infarction; E78.5 Hyperlipidemia, unspecified; Z79.82 Long term (current) use of aspirin; I42.2 Other hypertrophic cardiomyopathy; Z87.891 Personal history of nicotine dependence; I10 Essential (primary) hypertension; Z95.5 Presence of coronary angioplasty implant and graft; E11.65 Type 2 diabetes mellitus with hyperglycemia; I21.4 Non-ST elevation (NSTEMI) myocardial infarction; R07.9 Chest pain, unspecified; Z79.899 Other long term (current) drug therapy; Z98.890 Other specified postprocedural states